=== PATIENT | female | born 1980 | race African-American/Black ===

== ENCOUNTER 2023-03-13 16:45 | Emergency (ER) | payer MEDICAID ==
[~2023-03-13] VITALS: Ht 172.7 cm; Wt 93.0 kg
[2023-03-13 16:57] VITALS: BP 133/65; PULSE 104; RESP 16; TEMP 98.3; O2SAT 80
[2023-03-13] MEDS ORDERED: ACETAMINOPHEN 325MG TABLET PO ONE (18:00)
[2023-03-13] MEDS ORDERED: TOPUD MT (18:01)
== END 2023-03-13 18:34 | disposition home or self-care (01) ==
LOC: ER 18:31
DX: M25.531 Pain in right wrist (principal)
CPT/HCPCS: 73110; 81025; 99283